=== PATIENT | female | born 1990 | race Two or more races ===

== ENCOUNTER 2024-12-01 10:01 | Outpatient (CLI) | payer MEDICAID | END 2024-12-01 17:00 | disposition home or self-care (01) | LOC: LAB 10:01 | PROVIDERS: ATTEND Obstetrics & Gynecology | DX: O03.9 Complete or unspecified spontaneous abortion without complication (principal) | CPT/HCPCS: 36415; 84144; 84702 ==

== ENCOUNTER 2025-01-04 11:43 | Outpatient (CLI) | payer MEDICAID | END 2025-01-04 17:00 | disposition home or self-care (01) | LOC: LAB 11:43 | PROVIDERS: ATTEND Obstetrics & Gynecology | DX: O03.9 Complete or unspecified spontaneous abortion without complication (principal) | CPT/HCPCS: 36415; 84702 ==

== ENCOUNTER 2025-01-25 15:41 | Outpatient (CLI) | payer MEDICAID | END 2025-01-25 17:00 | disposition home or self-care (01) | LOC: LAB 15:41 | PROVIDERS: ATTEND Obstetrics & Gynecology | DX: O03.0 Genital tract and pelvic infection following incomplete spontaneous abortion (principal) | CPT/HCPCS: 36415; 84702 ==

== ENCOUNTER 2025-04-07 10:17 | Outpatient (CLI) | payer MEDICAID ==
[2025-04-07 10:50] LABS: Hematocrit 38.5 % (36.0-46.0); Hemoglobin 12.9 g/dL (12.2-16.2); Mean Corpuscular Hemoglobin 27.7 pg (28.0-32.0); Mean Corpuscular Volume 82.9 fL (80.0-100.0); Nucleated Red Blood Cells % 0.1 %
[2025-04-07 11:12] LABS: Alanine Aminotransferase 13 U/L (7-40); Albumin 4.5 g/dL (3.2-4.8); Alkaline Phosphatase 66 U/L (46-116); Anion Gap 9 (5-15); BUN/Creatinine Ratio 14.1 (10.0-20.0); Blood Urea Nitrogen 12 mg/dL (9-23); Calcium 9.1 mg/dL (8.7-10.4); Carbon Dioxide 24 mmol/L (20-31); Chloride 106 mmol/L (98-107); Glucose 99 mg/dL (74-106); Potassium 4.4 mmol/L (3.5-5.1); Sodium 139 mmol/L (136-145); Total Protein 7.4 g/dL (5.7-8.2)
[2025-04-07 11:13] LABS: Bilirubin, Total 0.5 mg/dL (0.2-1.0)
== END 2025-04-07 17:00 | disposition home or self-care (01) ==
LOC: LAB 10:17
DX: R10.9 Unspecified abdominal pain (principal)
CPT/HCPCS: 36415; 80053; 83036; 84702; 85025; 87086; 87340

== ENCOUNTER 2025-04-15 09:22 | Outpatient (CLI) | payer MEDICAID | END 2025-04-15 17:00 | disposition home or self-care (01) | LOC: LAB 09:22 | DX: N93.9 Abnormal uterine and vaginal bleeding, unspecified (principal); N92.6 Irregular menstruation, unspecified | CPT/HCPCS: 36415; 84702 ==

== ENCOUNTER → 2025-04-20 | Outpatient (CLI) | payer MEDICAID | END | disposition home or self-care (01) | LOC: LAB 10:29 | DX: N93.9 Abnormal uterine and vaginal bleeding, unspecified (principal); N92.6 Irregular menstruation, unspecified | CPT/HCPCS: 36415; 84702; 87340 ==

== ENCOUNTER 2025-05-25 11:42 | Outpatient (CLI) | payer MEDICAID ==
[2025-05-25 13:04] LABS: Hematocrit 36.1 % (36.0-46.0); Hemoglobin 12.4 g/dL (12.2-16.2); Mean Corpuscular Hemoglobin 29.5 pg (28.0-32.0); Mean Corpuscular Volume 86.3 fL (80.0-100.0); Nucleated Red Blood Cells % 0.1 %
[2025-05-25 13:32] LABS: Iron 118 ug/dL (50-170)
[2025-05-25 13:34] LABS: Alanine Aminotransferase 14 U/L (7-40); Albumin 4.1 g/dL (3.2-4.8); Alkaline Phosphatase 70 U/L (46-116); Anion Gap 10 (5-15); BUN/Creatinine Ratio 10.6 (10.0-20.0); Bilirubin, Total 0.5 mg/dL (0.2-1.0); Calcium 9.3 mg/dL (8.7-10.4); Carbon Dioxide 24 mmol/L (20-31); Chloride 105 mmol/L (98-107); Glucose 92 mg/dL (74-106); Potassium 3.9 mmol/L (3.5-5.1); Sodium 139 mmol/L (136-145); Total Protein 6.7 g/dL (5.7-8.2)
[2025-05-25 13:35] LABS: Total Iron Binding Capacity 295 ug/dL (250-425)
[2025-05-25 13:38] LABS: Thyroid Stimulating Hormone 0.52 uIU/mL (0.55-4.78)
[2025-05-25 13:39] LABS: Free T4 (Free Thyroxine) 1.2 ng/dL (0.89-1.76)
[2025-05-25 13:40] LABS: Blood Urea Nitrogen 7 mg/dL (9-23)
[2025-05-25 13:43] LABS: Ferritin 18.4 ng/mL (10-291)
[2025-05-25 14:14] LABS: RUBELLA Positive
[2025-05-25 14:21] LABS: Amphetamine Screen, Urine Neg (NEGATIVE); Barbiturate Scree,Urine Neg (NEGATIVE); Benzodiazephine Screen, Urine Neg (NEGATIVE); Cannabinoid Screen, Urine Neg (NEGATIVE); Cocaine Screen, Urine Neg (NEGATIVE); Opiate Scree,Urine Neg (NEGATIVE); Phencyclidine Screen, Urine Neg (NEGATIVE)
== END 2025-05-25 17:00 | disposition home or self-care (01) ==
LOC: LAB 11:42
DX: O23.40 Unspecified infection of urinary tract in pregnancy, unspecified trimester (principal); N39.0 Urinary tract infection, site not specified; Z11.3 Encounter for screening for infections with a predominantly sexual mode of transmission; Z31.430 Encounter of female for testing for genetic disease carrier status for procreative management; Z36.0 Encounter for antenatal screening for chromosomal anomalies; Z3A.00 Weeks of gestation of pregnancy not specified
CPT/HCPCS: 36415; 80053; 80307; 82728; 83036; 83540; 83550; 84439; 84443; 84702; 85025; 86480; 86703; 86762; 86780; 86787; 86850; 86900; 86901; 87086; 87340; 87902